=== PATIENT | male | born 1995 | race African-American/Black ===

== ENCOUNTER 2025-02-06 23:48 | Emergency (ER) | payer OTHER, SELFPAY ==
[2025-02-07] MEDS ORDERED: Prochlorperazine 10 MG/2 ML VIAL ONE (00:18)
[2025-02-07] MEDS ORDERED: diphenhydrAMINE 50 MG/ML VIAL ONE (00:18)
[2025-02-07] MEDS ORDERED: Famotidine/PF 20 mg/2ml Vial ONE (00:19)
[2025-02-07] MEDS ORDERED: Ketorolac Tromethamine 30 MG (1 mL) VIAL ONE (00:19)
[2025-02-07 00:43] LABS: #Basophils 0.07 10x3/uL (0.0-0.2); #Eosinophils 0.25 10x3/uL (0.0-0.5); #Monocytes 0.61 10x3/uL (0.0-1.1); #Neutrophils 4.17 10x3/uL (1.5-8.4); %Basophils 1.0 % (0.0-2.0); %Eosinophils 3.5 % (0.0-6.0); %Lymphocytes 27.4 % (18.0-47.0); %Monocytes 8.6 % (0.0-10.0); %Neutrophils 58.8 % (40.0-75.0); Hematocrit 49.4 % (38.8-50.0); Hemoglobin 16.2 g/dL (13.5-17.5); Mean Corpuscular Hemoglobin 28.9 pg (27.0-33.0); Mean Corpuscular Volume 88.1 fL (81.2-95.1); Platelet Count 240 10x3/uL (150-450); Red Blood Cell (RBC) Count 5.61 10x6/uL (4.32-5.72); White Blood Cell (WBC) Count 7.09 10x3/uL (3.5-10.5)
[2025-02-07 01:01] LABS: ALT (SGPT) 25 U/L (Less than 45); AST (SGOT) 39 U/L (11-34); Albumin 4.3 g/dL (3.1-4.5); Alkaline Phosphatase 40 U/L (40-110); Anion Gap 14 mmol/L (10-20); BUN (Urea Nitrogen) 10 mg/dL (8.9-20.6); Bilirubin, Total 0.4 mg/dL (0.3-1.2); Calc. Creatinine Clearance 0 mL/min (70-130); Calcium 9.7 mg/dL (7.8-10.44); Carbon Dioxide 24 mmol/L (22-29); Chloride 102 mmol/L (98-107); Globulin 3.6 g/dL (2.4-3.5); Glucose 128 mg/dL (70-105); Lipase 57 U/L (8-78); Potassium 4.4 mmol/L (3.5-5.1); Sodium 136 mmol/L (136-145)
[2025-02-07 01:31] LABS: Glucose, Urine (Dipstick) Normal (Negative); Leukocyte 25 (Negative); Protein, Urine (Dipstick) 30 mg/dl (Neg-Trace); Specific Gravity, Urine 1.015 (1.005-1.030)
[2025-02-07 01:41] LABS: Bacteria/HPF Rare-Few HPF (None Seen); CAUTI Indications for Culture Pelvic or flank pain; Mucous/LPF 1+ LPF (<2+); RBC/HPF 0-3 HPF (0-3); WBC/HPF 0-3 HPF (0-3)
[2025-02-07 01:42] LABS: Urine Culture Reflex No No
== END 2025-02-07 00:50 | disposition home or self-care (01) ==
LOC: CSHERS 23:48
DX: K29.20 Alcoholic gastritis without bleeding (principal); R10.13 Epigastric pain; N39.0 Urinary tract infection, site not specified; F17.290 Nicotine dependence, other tobacco product, uncomplicated
CPT/HCPCS: 74176; 80053; 81001; 83690; 85025; 93005; 96374; 96375; J0780; J1200; J1308; J1885